=== PATIENT | female | born 1970 ===

== ENCOUNTER → 2021-01-17 | Emergency (ER) | payer OTHER ==
[~2021-01-17] VITALS: Ht 157.5 cm; Wt 66.8 kg
[2021-01-17 18:31] VITALS: BP 142/93
== END | disposition left against medical advice (07) ==
LOC: ER 18:09
DX: Z02.89 Encounter for other administrative examinations (principal); R51.9 Headache, unspecified; R53.1 Weakness; B37.0 Candidal stomatitis; R13.10 Dysphagia, unspecified
CPT/HCPCS: 93005; 99283